=== PATIENT | female | born 1950 | race Caucasian/White ===

== ENCOUNTER 2018-05-25 08:20 | Day surgery (SDC) | payer BC ==
[2018-05-25] MEDS ORDERED: MIDAZOLAM 1 MG/ML 2 ML INJ ×2 (10:27)
[2018-05-25] MEDS ORDERED: FENTAnyl 50 MCG/ML VIAL (10:28)
== END 2018-05-25 11:11 | disposition home or self-care (01) ==
LOC: GIL 08:20
DX: Z12.11 Encounter for screening for malignant neoplasm of colon (principal); K64.8 Other hemorrhoids; K64.4 Residual hemorrhoidal skin tags; K57.30 Diverticulosis of large intestine without perforation or abscess without bleeding
CPT/HCPCS: 45378